=== PATIENT | male | born 2000 | race Two or more races ===

== ENCOUNTER 2023-02-08 02:03 | Emergency (ER) | payer OTHER ==
[~2023-02-08] VITALS: Ht 177.8 cm; Wt 72.6 kg
[2023-02-08 03:16] LABS: HEMATOCRIT 39.8 % (39.0-48.0); HEMOGLOBIN 13.9 g/dL (13-16.00); MEAN CELL VOLUME 80.8 fL (80.0-100.00); MEAN CORPUSCULAR HEMOGLOBIN 28.3 pg (27.00-32.0); PLATELET COUNT 183 K/uL (150-450); RED BLOOD COUNT 4.92 M/uL (4.00-6.00); RED CELL DISTRIBUTION WIDTH 13.3 % (11.5-14.5)
[2023-02-08 03:38] LABS: CALCIUM 9.4 mg/dL (8.5-10.1); CREATININE SERUM 1.03 mg/dL (0.70-1.30); GFR 90.3; POTASSIUM 3.79 mEq/L (3.5-5.1)
== END 2023-02-08 05:28 | disposition home or self-care (01) ==
LOC: ER 02:04
DX: K58.0 Irritable bowel syndrome with diarrhea (principal)

== ENCOUNTER 2023-02-12 14:59 | Emergency (ER) | payer OTHER ==
[~2023-02-12] VITALS: Ht 177.8 cm; Wt 72.6 kg
[2023-02-12] MEDS ORDERED: PROTONIX40 MG (15:19)
[2023-02-12 17:27] LABS: HEMATOCRIT 43.3 % (39.0-48.0); HEMOGLOBIN 15.3 g/dL (13-16.00); MEAN CELL VOLUME 80.3 fL (80.0-100.00); MEAN CORPUSCULAR HEMOGLOBIN 28.4 pg (27.00-32.0); MEAN CORPUSCULAR HGB CONC 35.3 g/dl (32.0-36.0); PLATELET COUNT 217 K/uL (150-450); RED BLOOD COUNT 5.39 M/uL (4.00-6.00); RED CELL DISTRIBUTION WIDTH 13.2 % (11.5-14.5)
[2023-02-12 17:49] LABS: ALBUMIN 4.8 gm/dL (3.4-5.0); BILIRUBIN TOTAL 0.51 mg/dL (0.3-1.2); BILIRUBIN,CONJUGATED 0.15 mg/dL (0.0-0.2); BILIRUBIN,UNCONJUGATED 0.36 mg/dL (0.0-0.6); CALCIUM 9.9 mg/dL (8.5-10.1); CREATININE SERUM 1.09 mg/dL (0.70-1.30); GFR 84.59; GLOBULINA 2.8 G/DL (2.4-3.5); POTASSIUM 4.33 mEq/L (3.5-5.1); TOTAL PROTEIN 7.6 gm/dL (6.4-8.2)
[2023-02-12] MEDS ORDERED: CARAFATE1 GM PO (19:23)
[2023-02-12] MEDS ORDERED: PEPCID20 MG PO (19:23)
== END 2023-02-12 20:11 | disposition home or self-care (01) ==
LOC: ER 14:59
PROVIDERS: General Practice
DX: K29.70 Gastritis, unspecified, without bleeding (principal)